=== PATIENT | female | born 1945 | race Caucasian/White ===

== ENCOUNTER → 2017-01-31 | Outpatient (CLI) | payer OTHER | LOC: HEART 5 01-08 08:00 | DX: I35.1 Nonrheumatic aortic (valve) insufficiency (principal); R07.9 Chest pain, unspecified | CPT/HCPCS: 78452; 93306; A9502; J2785 ==

== ENCOUNTER → 2017-04-29 | Outpatient (CLI) | payer OTHER | LOC: RAD 14:38 | DX: J93.9 Pneumothorax, unspecified (principal) | CPT/HCPCS: 71020 ==

== ENCOUNTER → 2017-05-06 | Outpatient (CLI) | payer OTHER | LOC: LAB 13:07 | DX: J93.9 Pneumothorax, unspecified (principal); J98.4 Other disorders of lung | CPT/HCPCS: 71020 ==

== ENCOUNTER → 2020-11-30 | Outpatient (CLI) | payer OTHER ==
[~2020-11-30] MED LIST: ASPIRIN EC81 MG PO; ELIQUIS5 MG PO; FAMCICLOVIR250 MG PO; HYDROCHLOROTHIA25 MG PO; K-DUR TAB 10 M10 MEQ PO; NITROSTAT0.4 MG SL; NORCO 5-325 TA1 EACH PO; OMEPRAZOLE40 MG PO; PRAVACHOL20 MG PO; QVAR INH; SINGULAIR10 MG PO; VENTOLIN HFA 66.7 GM INH
== END ==
LOC: EXRD 14:30 → US 14:30 → EXRD 15:01
DX: N17.9 Acute kidney failure, unspecified (principal); N28.1 Cyst of kidney, acquired
CPT/HCPCS: 76775

== ENCOUNTER → 2021-04-11 | Outpatient (CLI) | payer OTHER | LOC: KOH-I 14:30 | DX: R41.0 Disorientation, unspecified (principal); S09.90XA Unspecified injury of head, initial encounter; G44.309 Post-traumatic headache, unspecified, not intractable; E88.89 Other specified metabolic disorders; R29.6 Repeated falls | CPT/HCPCS: 70450 ==

== ENCOUNTER → 2021-05-01 | Outpatient (CLI) | payer OTHER | LOC: CT 12:49 → ECHO 13:30 | DX: R55 Syncope and collapse (principal); I08.2 Rheumatic disorders of both aortic and tricuspid valves | CPT/HCPCS: ECHO; 93306 ==

== ENCOUNTER → 2021-08-30 | Outpatient (CLI) | payer OTHER | LOC: EXRD 11:33 | DX: N17.9 Acute kidney failure, unspecified (principal); N28.1 Cyst of kidney, acquired | CPT/HCPCS: 76775 ==

== ENCOUNTER 2021-11-13 12:32 | Emergency (ER) | payer OTHER | END 2021-11-13 19:20 | disposition home or self-care (01) | LOC: ER1 12:32 | DX: S00.93XA Contusion of unspecified part of head, initial encounter (principal); S40.022A Contusion of left upper arm, initial encounter; I51.9 Heart disease, unspecified; Z79.01 Long term (current) use of anticoagulants; W01.10XA Fall on same level from slipping, tripping and stumbling with subsequent striking against unspecified object, initial encounter; Y92.009 Unspecified place in unspecified non-institutional (private) residence as the place of occurrence of the external cause | CPT/HCPCS: 70450; 72125; 73060; 99284 ==

== ENCOUNTER → 2022-04-25 | Outpatient (CLI) | payer OTHER | LOC: EMI 13:00 | DX: F22 Delusional disorders (principal); F03.90 Unspecified dementia, unspecified severity, without behavioral disturbance, psychotic disturbance, mood disturbance, and anxiety; R41.3 Other amnesia; F29 Unspecified psychosis not due to a substance or known physiological condition; G31.9 Degenerative disease of nervous system, unspecified; R90.89 Other abnormal findings on diagnostic imaging of central nervous system | CPT/HCPCS: 70551 ==

== ENCOUNTER 2022-06-05 01:20 | Emergency (ER) | payer OTHER | END 2022-06-05 04:05 | disposition home or self-care (01) | LOC: ER1 01:20 | DX: S61.412A Laceration without foreign body of left hand, initial encounter (principal); Z88.2 Allergy status to sulfonamides; Z96.641 Presence of right artificial hip joint; W01.0XXA Fall on same level from slipping, tripping and stumbling without subsequent striking against object, initial encounter; Y92.009 Unspecified place in unspecified non-institutional (private) residence as the place of occurrence of the external cause | CPT/HCPCS: 12001; 73130; 99283 ==

== ENCOUNTER → 2022-07-11 | Outpatient (CLI) | payer OTHER | LOC: KOH-I 13:00 | DX: N28.1 Cyst of kidney, acquired (principal) | CPT/HCPCS: 76775 ==

== ENCOUNTER → 2022-08-08 | Outpatient (CLI) | payer OTHER | LOC: LAB 09:47 | PROVIDERS: Internal Medicine Nephrology | DX: N17.9 Acute kidney failure, unspecified (principal) | CPT/HCPCS: 36415; 80053; 82570; 83970; 84156 ==